=== PATIENT | male | born 1965 | race American Indian/Alaskan Native ===

== ENCOUNTER 2018-01-27 06:05 | Emergency (ER) | payer SELFPAY ==
[2018-01-27 06:26] VITALS: BP 120/70
[2018-01-27] MEDS ORDERED: ASPIRIN PO ONE (06:26)
--- NOTE | 2018-01-27 06:47 | XRay Report ---
FINAL REPORT PROCEDURE: XR CHEST ROUTINE 2V TECHNIQUE: Chest radiograph anteroposterior view. CPT 60408 HISTORY: chestpain COMPARISON: No prior studies are available for comparison. FINDINGS: Heart: Normal. Mediastinum/Vessels: Normal. Lungs/Pleural space: Normal. Bony thorax: No acute osseous abnormality. Life support devices: None. IMPRESSION: No acute cardiopulmonary abnormality.
[2018-01-27 06:56] LABS: Basophils # (Auto) 0.1 K/mm3 (0.0-0.1); Basophils % (Auto) 0.9 % (0.0-1.8); Eosinophils # (Auto) 0.3 K/mm3 (0.0-0.4); Eosinophils % (Auto) 4.5 % (0.0-4.3); Lymphocytes # (Auto) 2.6 K/mm3 (1.2-5.4); Mean Corpuscular HGB Conc 34 % (32-34); Mean Corpuscular Hemoglobin 31 pg (28-32); Mean Corpuscular Volume 92 fl (84-94); Monocytes # (Auto) 0.8 K/mm3 (0.0-0.8); Monocytes % (Auto) 11.7 % (0.0-7.3); Platelet Count 291 K/mm3 (140-440); Red Blood Count 4.45 M/mm3 (3.65-5.03); Red Cell Distribution Width 13.8 % (13.2-15.2)
[2018-01-27 07:19] LABS: BUN/Creatinine Ratio 9; Blood Urea Nitrogen 9 mg/dL (9-20); Calcium 9.3 mg/dL (8.4-10.2); Hemolysis Index 2
== END 2018-01-27 07:00 | disposition left against medical advice (07) ==
LOC: ED 06:05
DX: R07.89 Other chest pain (principal); Z53.21 Procedure and treatment not carried out due to patient leaving prior to being seen by health care provider
CPT/HCPCS: 36415; 71046; 80048; 84484; 85025; 93005; 93010

== ENCOUNTER 2019-07-16 22:40 | Emergency (ER) | payer SELFPAY ==
[2019-07-16 22:48] VITALS: BP 135/80
--- NOTE | 2019-07-17 02:48 | Emergency Department Report ---
ED General Adult HPI - General Chief complaint: Earache Stated complaint: LEFT EAR FB Time Seen by Provider: 07/17/19 01:20 Source: patient Mode of arrival: Ambulatory Limitations: No Limitations - History of Present Illness Initial comments: 54yo BM states that he has a piece of cotton from a Q-tip in his L ear that he can not remove x 1 day. -: days(s) (1 day) Location: head Radiation: non-radiation Severity scale (0 -10): 0 Improves with: none Worsens with: none Associated Symptoms: denies other symptoms Treatments Prior to Arrival: none - Related Data Previous Rx's Medication Instructions Recorded Last Taken Type Acetaminophen/Codeine 1 tab PO Q6H PRN #20 tab 08/03/14 Unknown Rx [Acetaminophen-Codeine #3 TAB] Ibuprofen [Motrin] 800 mg PO Q8H #30 tablet 08/03/14 Unknown Rx methOCARBAMOL [Robaxin] 500 mg PO TID #30 tablet 08/03/14 Unknown Rx Allergies Allergy/AdvReac Type Severity Reaction Status Date / Time No Known Allergies Allergy Unverified 07/30/13 00:16 ED Review of Systems ROS: Stated complaint: LEFT EAR FB Other details as noted in HPI Comment: All other systems reviewed and negative ENT: as per HPI ED Past Medical Hx - Past Medical History Previous Medical History?: Yes Hx Asthma: Yes Additional medical history: hx. pancreatitis - Surgical History Past Surgical History?: No - Social History Smoking Status: Current Every Day Smoker Substance Use Type: Alcohol, Marijuana - Medications Home Medications: Home Medications Medication Instructions Recorded Confirmed Last Taken Type Acetaminophen/Codeine 1 tab PO Q6H PRN #20 tab 08/03/14 Unknown Rx [Acetaminophen-Codeine #3 TAB] Ibuprofen [Motrin] 800 mg PO Q8H #30 tablet 08/03/14 Unknown Rx methOCARBAMOL [Robaxin] 500 mg PO TID #30 tablet 08/03/14 Unknown Rx ED Physical Exam - General Limitations: No Limitations General appearance: alert, in no apparent distress - Head Head exam: Present: atraumatic, normocephalic - Eye Eye exam: Present: normal appearance, PERRL, EOMI Pupils: Present: normal accommodation - Expanded ENT Exam Expanded TM/Canal exam: Foreign Body: Left TM (white distal cotton portion of Q-tip present in ear canal) Throat exam: Positive: normal inspection - Neck Neck exam: Present: normal inspection, tenderness, full ROM - Respiratory Respiratory exam: Present: normal lung sounds bilaterally. Absent: respiratory distress, wheezes - Cardiovascular Cardiovascular Exam: Present: regular rate, normal rhythm, normal heart sounds - GI/Abdominal GI/Abdominal exam: Present: soft. Absent: distended, tenderness - Rectal Rectal exam: Present: deferred - Extremities Exam Extremities exam: Present: normal inspection, full ROM. Absent: tenderness - Back Exam Back exam: Present: normal inspection, full ROM. Absent: tenderness - Neurological Exam Neurological exam: Present: alert, altered, oriented X3 - Psychiatric Psychiatric exam: Present: normal affect, normal mood. Absent: anxious - Skin Skin exam: Present: warm, dry, intact ED Course Vital Signs 07/16/19 22:46 Temperature 98 F Pulse Rate 79 Respiratory 16 Rate Blood Pressure 135/80 Blood Pressure 135/80 [Left] O2 Sat by Pulse 98 Oximetry - Procedure Description Procedures done: Foreign body visualized in the Left external ear canal. Alligator forceps were used to remove the foreign body successfully. Left external ear canal and TM were without injury and intact upon completion of the procedure. Pt tolerated the procedure well. ED Medical Decision Making - Medical Decision Making 54yo BM states that he has a piece of cotton from a Q-tip in his L ear that he can not remove x 1 day. Pt was informed that upon exam the foreign was visualized and will be removed. Foreign body visualized in the Left external ear canal. Alligator forceps were used to remove the foreign body successfully. Left external ear canal and TM were without injury and intact upon completion of the procedure. Pt tolerated the procedure well. Pt was instructed to see the ER as needed. Critical care attestation.: If time is entered above; I have spent that time in minutes in the direct care of this critically ill patient, excluding procedure time. ED Disposition Clinical Impression: Foreign body Disposition: DC-01 TO HOME OR SELFCARE Is pt being admited?: No Does the pt Need Aspirin: No Condition: Stable Additional Instructions: Pt departed before receiving referral. Referrals: [facility] [Provider Group] - 3-5 Days
== END 2019-07-17 02:50 | disposition home or self-care (01) ==
LOC: ED 22:40
DX: T16.2XXA Foreign body in left ear, initial encounter (principal); J45.909 Unspecified asthma, uncomplicated; F17.200 Nicotine dependence, unspecified, uncomplicated; F10.10 Alcohol abuse, uncomplicated; F12.10 Cannabis abuse, uncomplicated; Z79.899 Other long term (current) drug therapy; X58.XXXA Exposure to other specified factors, initial encounter; Y93.89 Activity, other specified; Y92.89 Other specified places as the place of occurrence of the external cause; Y99.8 Other external cause status

== ENCOUNTER 2019-10-29 14:28 | Emergency (ER) | payer SELFPAY ==
[2019-10-29 15:13] VITALS: BP 117/70
--- NOTE | 2019-10-29 15:15 | Emergency Department Report ---
ED Neck Pain/Injury HPI - General Chief Complaint: Neck Pain/Injury Stated Complaint: NECK PAIN Time Seen by Provider: 10/29/19 15:10 Mode of arrival: Ambulatory Limitations: No Limitations - History of Present Illness Initial Comments: This is a 54-year-old male nontoxic, well nourished in appearance, no acute signs of distress presents to the ED with c/o of acute on chronic upper back pain. Patient stated that the past 2 days he was heavy lifting and developed this pain. Patient denies any trauma. Denies any bladder or bowel instability. Patient denies any urinary symptoms. Denies any fever, chills, nausea, vomiting, headache, stiff neck, chest pain or shortness of breath. Patient denies any numbness or tingling. Denies any allergies. MD Complaint: upper back pain -: days(s) Radiation: upper back Severity: mild Severity scale (0 -10): 3 Quality: aching Consistency: intermittent Improves With: immobilization, remaining still Worsens With: movement of neck Associated Symptoms: none. denies: headache, fever, numbness, tingling, weakness, vertigo, difficulty walking, swollen glands, difficulty swallowing, nausea, vomiting Treatments Prior to Arrival: none - Related Data Previous Rx's Medication Instructions Recorded Last Taken Type Acetaminophen/Codeine 1 tab PO Q6H PRN #20 tab 08/03/14 Unknown Rx [Acetaminophen-Codeine #3 TAB] Ibuprofen [Motrin] 800 mg PO Q8H #30 tablet 08/03/14 Unknown Rx methOCARBAMOL [Robaxin] 500 mg PO TID #30 tablet 08/03/14 Unknown Rx Cyclobenzaprine [Flexeril] 10 mg PO QHS PRN #10 tablet 10/29/19 Unknown Rx Naproxen 500 mg PO Q12H PRN #20 tablet 10/29/19 Unknown Rx Allergies Allergy/AdvReac Type Severity Reaction Status Date / Time No Known Allergies Allergy Unverified 07/30/13 00:16 ED Review of Systems ROS: Stated complaint: NECK PAIN Other details as noted in HPI Constitutional: denies: chills, fever Eyes: denies: eye pain, eye discharge, vision change ENT: denies: ear pain, throat pain Respiratory: denies: cough, shortness of breath, wheezing Cardiovascular: denies: chest pain, palpitations Endocrine: no symptoms reported Gastrointestinal: denies: abdominal pain, nausea, diarrhea Genitourinary: denies: urgency, dysuria Musculoskeletal: back pain. denies: joint swelling, arthralgia Skin: denies: rash, lesions Neurological: denies: headache, weakness, paresthesias Psychiatric: denies: anxiety, depression Hematological/Lymphatic: denies: easy bleeding, easy bruising ED Past Medical Hx - Past Medical History Previous Medical History?: Yes Hx Asthma: Yes Additional medical history: hx. pancreatitis - Surgical History Past Surgical History?: No - Social History Smoking Status: Current Every Day Smoker Substance Use Type: Alcohol, Marijuana - Medications Home Medications: Home Medications Medication Instructions Recorded Confirmed Last Taken Type Acetaminophen/Codeine 1 tab PO Q6H PRN #20 tab 08/03/14 Unknown Rx [Acetaminophen-Codeine #3 TAB] Ibuprofen [Motrin] 800 mg PO Q8H #30 tablet 08/03/14 Unknown Rx methOCARBAMOL [Robaxin] 500 mg PO TID #30 tablet 08/03/14 Unknown Rx Cyclobenzaprine [Flexeril] 10 mg PO QHS PRN #10 tablet 10/29/19 Unknown Rx Naproxen 500 mg PO Q12H PRN #20 tablet 10/29/19 Unknown Rx ED Physical Exam - General Limitations: No Limitations General appearance: alert, in no apparent distress - Head Head exam: Present: atraumatic, normocephalic - Eye Eye exam: Present: normal appearance, PERRL, EOMI - Neck Neck exam: Present: normal inspection, full ROM. Absent: tenderness, meningismus, lymphadenopathy - Extremities Exam Extremities exam: Present: normal inspection, full ROM, normal capillary refill. Absent: tenderness - Back Exam Back exam: Present: normal inspection, full ROM, paraspinal tenderness (left cervical paraspinal). Absent: tenderness, CVA tenderness (R), CVA tenderness (L), muscle spasm, vertebral tenderness, rash noted - Neurological Exam Neurological exam: Present: alert, oriented X3, normal gait - Psychiatric Psychiatric exam: Present: normal affect, normal mood - Skin Skin exam: Present: warm, dry, intact, normal color. Absent: rash ED Course - Reevaluation(s) Reevaluation #1: 10/29/19 15:13 Patient is speaking in full sentences with no signs of distress noted. ED Medical Decision Making - Medical Decision Making This is a 54-year-old male that presents with upper back strain. Patient is stable was examined by me. There is no spinal tenderness. There is no cauda equina syndrome during examination. No bladder or bowel instability. Patient is discharged with muscle relaxant and NSAID. Patient was instructed not to operate any machinery while taking muscle relaxant as they cause her drowsiness. Patient was referred to Follow-up with a primary care doctor in 3-5 days or if symptoms worsen and continue return to emergency room as soon as possible. At time of discharge, the patient does not seem toxic or ill in appearance. No acute signs of distress noted. Patient agrees to discharge treatment plan of care. No further questions noted by the patient. Critical care attestation.: If time is entered above; I have spent that time in minutes in the direct care of this critically ill patient, excluding procedure time. ED Disposition Clinical Impression: Cervical muscle strain Qualifiers: Encounter type: initial encounter Qualified Code(s): S16.1XXA - Strain of muscle, fascia and tendon at neck level, initial encounter Disposition: TO HOME OR SELFCARE Is pt being admited?: No Does the pt Need Aspirin: No Condition: Stable Instructions: Muscle Strain (ED) Additional Instructions: Follow-up with a primary care doctor in 3-5 days or if symptoms worsen and continue return to emergency room as soon as possible. Prescriptions: Cyclobenzaprine [Flexeril] 10 mg PO QHS PRN #10 tablet PRN Reason: Muscle Spasm Naproxen 500 mg PO Q12H PRN #20 tablet PRN Reason: Pain , Severe (7-10) Referrals: CHING HESTER MD [Referring] - 3-5 Days ANGELINA CHRISTIAN MD [Staff Physician] - 3-5 Days [facility] [Outside] - 3-5 Days
== END 2019-10-29 15:40 | disposition home or self-care (01) ==
LOC: ED 14:28
DX: S16.1XXA Strain of muscle, fascia and tendon at neck level, initial encounter (principal); F12.90 Cannabis use, unspecified, uncomplicated; J45.909 Unspecified asthma, uncomplicated; F17.200 Nicotine dependence, unspecified, uncomplicated; Z79.899 Other long term (current) drug therapy; X58.XXXA Exposure to other specified factors, initial encounter; Y93.89 Activity, other specified; Y92.89 Other specified places as the place of occurrence of the external cause; Y99.8 Other external cause status
CPT/HCPCS: 99282

== ENCOUNTER 2020-05-10 18:01 | Emergency (ER) | payer SELFPAY ==
[2020-05-10] MEDS ORDERED: dexAMETHasone 4 MG/ML VIAL IM ONE (19:16)
[2020-05-10] MEDS ORDERED: KETOROLAC 60 MG/2 ML INJ IM ONE (19:16)
--- NOTE | 2020-05-10 19:24 | Emergency Department Report ---
ED General Adult HPI - General Chief complaint: Extremity Injury, Upper Stated complaint: numbness Time Seen by Provider: 05/10/20 18:50 Source: patient Mode of arrival: Ambulatory Limitations: No Limitations - History of Present Illness Initial comments: Patient is a 55-year-old male presents emergency room with complaints of right arm tingling and neck pain that began a week ago. He denies any fall or injury. 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 He states that he is also has left-sided sciatica which he reports that he has had for 3 to 4 months. He states he has it in his left lower back radiating down his left leg. He denies any complete numbness, weakness, bowel or bladder incontinence, gait disturbance, headache, vision changes, fever, vomiting, urinary symptoms, CP, SOB. He denies any other past medical history. No allergies to medications. He has not seen a primary care physician or an orthopedic. - Related Data Previous Rx's Medication Instructions Recorded Last Taken Type Acetaminophen/Codeine 1 tab PO Q6H PRN #20 tab 08/03/14 Unknown Rx [Acetaminophen-Codeine #3 TAB] Ibuprofen [Motrin] 800 mg PO Q8H #30 tablet 08/03/14 Unknown Rx methOCARBAMOL [Robaxin] 500 mg PO TID #30 tablet 08/03/14 Unknown Rx Cyclobenzaprine [Flexeril] 10 mg PO QHS PRN #10 tablet 10/29/19 Unknown Rx Naproxen 500 mg PO Q12H PRN #20 tablet 10/29/19 Unknown Rx Menthol/Camphor [[place] 1 applic TP BID #8 oint...g. 05/10/20 Unknown Rx Ointment] Naproxen 500 mg PO BID PRN #14 tablet 05/10/20 Unknown Rx methOCARBAMOL [Robaxin TAB] 500 mg PO BID PRN #14 tab 05/10/20 Unknown Rx Allergies Allergy/AdvReac Type Severity Reaction Status Date / Time No Known Allergies Allergy Unverified 07/30/13 00:16 ED Review of Systems ROS: Stated complaint: numbness Other details as noted in HPI Comment: All other systems reviewed and negative ED Past Medical Hx - Past Medical History Previous Medical History?: Yes Hx Asthma: Yes Additional medical history: hx. pancreatitis, Back and neck pain - Surgical History Past Surgical History?: No - Social History Smoking Status: Current Every Day Smoker Substance Use Type: Alcohol, Marijuana - Medications Home Medications: Home Medications Medication Instructions Recorded Confirmed Last Taken Type Acetaminophen/Codeine 1 tab PO Q6H PRN #20 tab 08/03/14 Unknown Rx [Acetaminophen-Codeine #3 TAB] Ibuprofen [Motrin] 800 mg PO Q8H #30 tablet 08/03/14 Unknown Rx methOCARBAMOL [Robaxin] 500 mg PO TID #30 tablet 08/03/14 Unknown Rx Cyclobenzaprine [Flexeril] 10 mg PO QHS PRN #10 tablet 10/29/19 Unknown Rx Naproxen 500 mg PO Q12H PRN #20 tablet 10/29/19 Unknown Rx Menthol/Camphor [[place] 1 applic TP BID #8 oint...g. 05/10/20 Unknown Rx Ointment] Naproxen 500 mg PO BID PRN #14 tablet 05/10/20 Unknown Rx methOCARBAMOL [Robaxin TAB] 500 mg PO BID PRN #14 tab 05/10/20 Unknown Rx ED Physical Exam - General Limitations: No Limitations General appearance: alert, in no apparent distress - Head Head exam: Present: atraumatic, normocephalic - Eye Eye exam: Present: normal appearance - ENT ENT exam: Present: mucous membranes moist - Neck Neck exam: Present: normal inspection, tenderness (right sided paraspinal muscular ttp, no midline ttp, no step offs, no deformities ), full ROM - Respiratory Respiratory exam: Present: normal lung sounds bilaterally. Absent: respiratory distress, wheezes, rales, rhonchi, stridor, chest wall tenderness, accessory muscle use, decreased breath sounds, prolonged expiratory - Cardiovascular Cardiovascular Exam: Present: regular rate, normal rhythm, normal heart sounds. Absent: systolic murmur, diastolic murmur, rubs, gallop - Back Exam Back exam: Present: normal inspection, full ROM, paraspinal tenderness (left sided L-spine paraspinal muscular ttp, no midline C-spine, T-spine or L-spine ttp, no step offs, no deformities). Absent: vertebral tenderness - Neurological Exam Neurological exam: Present: alert, oriented X3, CN II-XII intact, normal gait. Absent: motor sensory deficit - Psychiatric Psychiatric exam: Present: normal affect, normal mood - Skin Skin exam: Present: warm, dry, intact ED Course Vital Signs 05/10/20 18:06 Temperature 98.5 F Pulse Rate 73 Respiratory 20 Rate Blood Pressure 127/80 O2 Sat by Pulse 97 Oximetry ED Medical Decision Making - Medical Decision Making Patient is a 55-year-old male presents emergency room with complaints of right arm tingling and neck pain that began a week ago. He denies any fall or injury. 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 He states that he is also has left-sided sciatica which he reports that he has had for 3 to 4 months. He states he has it in his left lower back radiating down his left leg. He denies any complete numbness, weakness, bowel or bladder incontinence, gait disturbance, headache, vision changes, fever, vomiting, urinary symptoms, CP, SOB. He denies any other past medical history. No allergies to medications. He has not seen a primary care physician or an orthopedic. Vitals are normal. On exam: right sided paraspinal muscular ttp, no midline ttp, no step offs, no deformities, left sided L-spine paraspinal muscular ttp, no midline C-spine, T-spine or L-spine ttp, no step offs, no deformities, no focal neuro deficits. Symptoms and examination appear most consistent with cervical radiculopathy. He also has chronic sciatica. Patient given Toradol and dexamethasone IM and symptoms improved. Patient will be referred to orthopedic. Patient will be referred to a primary care physician. Patient given prescription for naproxen, Robaxin, [place] balm ointment. Advised patient to please use medication as prescribed. Do not drive, work, or operate heavy machinery while taking muscle relaxer Robaxin. May use ice pack, heating pad, rest, Epson salt bath. Please do the stretches for sciatica. Follow-up with an orthopedic doctor. Follow-up with a primary care doctor. Return to emergency room for any new or worsening symptoms. - Differential Diagnosis cervical radiculopathy, bulging disc, DDD, sciatica, arthritis,muscle strai Critical care attestation.: If time is entered above; I have spent that time in minutes in the direct care of this critically ill patient, excluding procedure time. ED Disposition Clinical Impression: Neck pain, Tingling of right upper extremity Sciatica Qualifiers: Laterality: left Qualified Code(s): M54.32 - Sciatica, left side Disposition: DC-01 TO HOME OR SELFCARE Is pt being admited?: No Does the pt Need Aspirin: No Condition: Stable Instructions: Cervical Radiculopathy (ED), Sciatica (ED) Additional Instructions: please use medication as prescribed. Do not drive, work, or operate heavy machinery while taking muscle relaxer Robaxin. May use ice pack, heating pad, rest, Epson salt bath. Please do the stretches for sciatica. Follow-up with an orthopedic doctor. Follow-up with a primary care doctor. Return to emergency room for any new or worsening symptoms. Prescriptions: Naproxen 500 mg PO BID PRN #14 tablet PRN Reason: pain methOCARBAMOL [Robaxin TAB] 500 mg PO BID PRN #14 tab PRN Reason: pain Menthol/Camphor [[place] Ointment] 1 applic TP BID #8 oint...g. Referrals: ANGELINA CHRISTIAN MD [Staff Physician] - 2-[address] [facility] [Provider Group] - 2-3 Days [facility] [Provider Group] - 2-3 Days Time of Disposition: 19:30 Print Language: THAI
[2020-05-10 19:39] VITALS: BP 124/80
== END 2020-05-10 19:37 | disposition home or self-care (01) ==
LOC: ED 18:01
DX: M54.32 Sciatica, left side (principal); M54.2 Cervicalgia; R20.2 Paresthesia of skin; J45.909 Unspecified asthma, uncomplicated; F17.200 Nicotine dependence, unspecified, uncomplicated; F12.90 Cannabis use, unspecified, uncomplicated; Z79.899 Other long term (current) drug therapy
CPT/HCPCS: 96372; 99282; J1100; J1885

== ENCOUNTER 2020-05-12 05:54 | Emergency (ER) | payer SELFPAY ==
--- NOTE | 2020-05-12 06:35 | XRay Report ---
CHEST 1 VIEW 05/12/2020 6:30 AM INDICATION / CLINICAL INFORMATION: Chest Pain. COMPARISON: Chest x-ray on 01/27/2018 FINDINGS: SUPPORT DEVICES: None. HEART / MEDIASTINUM: No significant abnormality. LUNGS / PLEURA: No significant pulmonary or pleural abnormality. No pneumothorax. ADDITIONAL FINDINGS: No significant additional findings. IMPRESSION: 1. No acute findings. Signer Name: Vlad Patrick MD Signed: 05/12/2020 6:30 AM Workstation Name: [id number]
[2020-05-12 07:04] LABS: Basophils # (Auto) 0.1 K/mm3 (0.0-0.1); Eosinophils # (Auto) 0.2 K/mm3 (0.0-0.4); Eosinophils % (Auto) 1.9 % (0.0-4.3); Hematocrit 42.4 % (35.5-45.6); Hemoglobin 14.9 gm/dl (11.8-15.2); Lymphocytes # (Auto) 3.5 K/mm3 (1.2-5.4); Lymphocytes % (Auto) 37.3 % (13.4-35.0); Mean Corpuscular HGB Conc 35 % (32-34); Mean Corpuscular Volume 91 fl (84-94); Monocytes # (Auto) 0.8 K/mm3 (0.0-0.8); Monocytes % (Auto) 8.9 % (0.0-7.3); Platelet Count 305 K/mm3 (140-440); Red Blood Count 4.65 M/mm3 (3.65-5.03); Red Cell Distribution Width 13.5 % (13.2-15.2)
[2020-05-12 07:26] LABS: BUN/Creatinine Ratio 10; Blood Urea Nitrogen 11 mg/dL (9-20); Calcium 9.4 mg/dL (8.4-10.2); Hemolysis Index 7
--- NOTE | 2020-05-12 07:26 | Emergency Department Report ---
ED Chest Pain HPI - General Chief Complaint: Chest Pain Stated Complaint: CHEST PAIN Time Seen by Provider: 05/12/20 07:14 Source: patient Mode of arrival: Ambulatory Limitations: No Limitations - History of Present Illness Initial Comments: 55-year-old male, no past medical history, presents to ED with complaint of chest pain. Patient states pain is left-sided, sharp in nature, nonradiating. Patient reports onset of pain at approximately 4:30 AM. He states pain has been constant. He reports associated diaphoresis and shortness of breath. He denies any nausea or vomiting, cough, fever, leg pain or swelling. He denies any aggravating or alleviating factors. Patient reports tobacco and marijuana use. Patient was seen 2 days ago for right-sided neck and arm pain and diagnosed with radiculopathy. MD Complaint: chest pain -: This morning Onset: during rest Pain Location: left chest Pain Radiation: none Severity: moderate Severity scale (0 -10): 8 Quality: sharp Consistency: constant Improves With: nothing Worsens With: nothing re: diaphoresis, dyspnea. denies: nausea, vomting Other Symptoms: denies: cough, fever, leg swelling - Related Data Previous Rx's Medication Instructions Recorded Last Taken Type Acetaminophen/Codeine 1 tab PO Q6H PRN #20 tab 08/03/14 Unknown Rx [Acetaminophen-Codeine #3 TAB] Ibuprofen [Motrin] 800 mg PO Q8H #30 tablet 08/03/14 Unknown Rx methOCARBAMOL [Robaxin] 500 mg PO TID #30 tablet 08/03/14 Unknown Rx Cyclobenzaprine [Flexeril] 10 mg PO QHS PRN #10 tablet 10/29/19 Unknown Rx Naproxen 500 mg PO Q12H PRN #20 tablet 10/29/19 Unknown Rx Menthol/Camphor [[place] 1 applic TP BID #8 oint...g. 05/10/20 Unknown Rx Ointment] Naproxen 500 mg PO BID PRN #14 tablet 05/10/20 Unknown Rx methOCARBAMOL [Robaxin TAB] 500 mg PO BID PRN #14 tab 05/10/20 Unknown Rx Allergies Allergy/AdvReac Type Severity Reaction Status Date / Time No Known Allergies Allergy Verified 05/12/20 06:01 Heart Score - HEART Score History: Slightly suspicious EKG: Normal Age: 45-65 Risk factors: 1-2 risk factors Troponin: < normal limit HEART Score: 2 ED Review of Systems ROS: Stated complaint: CHEST PAIN Other details as noted in HPI ED Past Medical Hx - Past Medical History Previous Medical History?: Yes Hx Asthma: Yes Additional medical history: hx. pancreatitis, Back and neck pain - Surgical History Past Surgical History?: No - Social History Smoking Status: Current Every Day Smoker Substance Use Type: Alcohol, Marijuana - Medications Home Medications: Home Medications Medication Instructions Recorded Confirmed Last Taken Type Acetaminophen/Codeine 1 tab PO Q6H PRN #20 tab 08/03/14 Unknown Rx [Acetaminophen-Codeine #3 TAB] Ibuprofen [Motrin] 800 mg PO Q8H #30 tablet 08/03/14 Unknown Rx methOCARBAMOL [Robaxin] 500 mg PO TID #30 tablet 08/03/14 Unknown Rx Cyclobenzaprine [Flexeril] 10 mg PO QHS PRN #10 tablet 10/29/19 Unknown Rx Naproxen 500 mg PO Q12H PRN #20 tablet 10/29/19 Unknown Rx Menthol/Camphor [[place] 1 applic TP BID #8 oint...g. 05/10/20 Unknown Rx Ointment] Naproxen 500 mg PO BID PRN #14 tablet 05/10/20 Unknown Rx methOCARBAMOL [Robaxin TAB] 500 mg PO BID PRN #14 tab 05/10/20 Unknown Rx ED Physical Exam - General Limitations: No Limitations General appearance: alert, in no apparent distress - Head Head exam: Present: atraumatic, normocephalic - Eye Eye exam: Present: normal appearance, EOMI - ENT ENT exam: Present: mucous membranes moist - Neck Neck exam: Present: normal inspection - Respiratory Respiratory exam: Present: normal lung sounds bilaterally, chest wall tenderness. Absent: respiratory distress - Cardiovascular Cardiovascular Exam: Present: regular rate, normal rhythm - GI/Abdominal GI/Abdominal exam: Present: soft. Absent: distended, tenderness - Extremities Exam Extremities exam: Present: normal inspection. Absent: pedal edema, calf tenderness - Neurological Exam Neurological exam: Present: alert, oriented X3 - Psychiatric Psychiatric exam: Present: normal affect, normal mood - Skin Skin exam: Present: warm, dry, intact, normal color ED Course Vital Signs 05/12/20 05/12/20 05/12/20 05:55 06:53 06:55 Temperature 97.6 F 97.8 F Pulse Rate 58 L 54 L Respiratory 18 20 Rate Blood Pressure Blood Pressure 150/82 137/88 [Right] O2 Sat by Pulse 100 97 99 Oximetry 05/12/20 05/12/20 05/12/20 07:00 07:24 07:30 Temperature Pulse Rate 58 L 56 L 57 L Respiratory 15 13 14 Rate Blood Pressure 146/84 124/80 Blood Pressure 121/77 [Right] O2 Sat by Pulse 95 97 96 Oximetry 05/12/20 05/12/20 05/12/20 08:00 08:30 08:46 Temperature Pulse Rate 51 L 56 L 59 L Respiratory 14 15 12 Rate Blood Pressure 127/81 109/73 118/88 Blood Pressure [Right] O2 Sat by Pulse 98 98 97 Oximetry 05/12/20 05/12/20 09:15 12:14 Temperature Pulse Rate 55 L 54 L Respiratory 17 16 Rate Blood Pressure Blood Pressure 128/83 132/65 [Right] O2 Sat by Pulse 97 99 Oximetry - Reevaluation(s) Reevaluation #1: 05/12/20 09:34 Spoke w/ electrical electronics technician. States scanner will be down for another hour. Unable to get 2nd scanner up and running. Will order V/Q scan. ED Medical Decision Making - Lab Data Result diagrams: 05/12/20 06:42 05/12/20 06:42 - EKG Data -: EKG Interpreted by Tx EKG shows normal: sinus rhythm, axis, intervals, QRS complexes, ST-T waves Rate: normal - EKG Data Interpretation: no acute changes, other (old anteroseptal infarct) - Radiology Data Radiology results: report reviewed, image reviewed - Medical Decision Making 55-year-old male presents to ED with left-sided chest pain. EKG shows no acute ST changes. Troponin is negative x2. D-dimer was elevated, so VQ scan was ob tained which shows low probability for PE. Patient is in no respiratory distress, O2 sats are normal. Patient has been asleep, resting comfortably on stretcher during his entire ED visit. Patient does have some reproducible chest wall tenderness, which may be the cause of his chest pain. At this point, patient does not require admission. Information faxed to [facility] for urgent cardiology follow-up. Patient is comfortable with this plan, will discharge at this time. - Differential Diagnosis ACS, PE, chest wall pain Critical care attestation.: If time is entered above; I have spent that time in minutes in the direct care of this critically ill patient, excluding procedure time. ED Disposition Clinical Impression: Acute chest pain Disposition: - TO HOME OR SELFCARE Is pt being admited?: No Condition: Stable Instructions: Chest Pain (ED) Referrals: HINA MERCEDES MD [Primary Care Provider] - 3-5 Days ARA CORONADO MD [Staff Physician] - 3-5 Days Time of Disposition: 11:00
[2020-05-12 08:04] LABS: INR 0.91 (0.87-1.13)
--- NOTE | 2020-05-12 10:50 | Nuclear Medicine Report ---
NM perfusion only lung scan INDICATION / CLINICAL INFORMATION: chest pain. TECHNIQUE: 5.5 mCi technetium MAA, IV COMPARISON: Compared to chest radiograph done earlier today. FINDINGS: Perfusion images demonstrate fairly homogeneous uptake throughout both lungs. I see no significant pe rfusion defects to indicate pulmonary embolus. IMPRESSION: 1. Probability of pulmonary embolus. Signer Name: Thomas Hicks MD Signed: 05/12/2020 10:45 AM Workstation Name: [id number]
[2020-05-12 12:15] VITALS: BP 132/65
== END 2020-05-12 12:15 | disposition home or self-care (01) ==
LOC: ED 05:54
DX: R07.89 Other chest pain (principal); J45.909 Unspecified asthma, uncomplicated; F12.90 Cannabis use, unspecified, uncomplicated; F17.200 Nicotine dependence, unspecified, uncomplicated; Z79.899 Other long term (current) drug therapy
CPT/HCPCS: 36415; 71045; 78580; 80048; 84484; 85025; 85379; 85610; 85730; 93005; 99284; A9540

== ENCOUNTER 2021-07-23 18:09 | Emergency (ER) | payer SELFPAY ==
[2021-07-23] MEDS ORDERED: KETOROLAC 60 MG/2 ML INJ IM ONE (18:55)
--- NOTE | 2021-07-23 19:00 | Emergency Department Report ---
ED Back Pain/Injury HPI - General Chief Complaint: Pain General Stated Complaint: BACK, SIDE, NECK PAIN Time Seen by Provider: 07/23/21 18:46 Source: patient Mode of arrival: Ambulatory Limitations: No Limitations - History of Present Illness Initial Comments: 56-year-old [id number] male presents to the hospital planing of left- sided neck and right lower back pain x1 week. 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 Patient complains of moderate to severe right-sided neck and right-sided back stiffness, aching, that is worse with movement and palpation. Patient denies fever, nausea, vomiting, hematuria, dysuria, or incontinence. Patient has chronic left leg paresthesias which is unchanged and does not involve the right. Patient does not have a PMD - Related Data Previous Rx's Medication Instructions Recorded Last Taken Type Acetaminophen/Codeine 1 tab PO Q6H PRN #20 tab 08/03/14 Unknown Rx [Acetaminophen-Codeine #3 TAB] Ibuprofen [Motrin] 800 mg PO Q8H #30 tablet 08/03/14 Unknown Rx Cyclobenzaprine [Flexeril] 10 mg PO QHS PRN #10 tablet 10/29/19 Unknown Rx Naproxen 500 mg PO BID PRN #14 tablet 05/10/20 Unknown Rx methOCARBAMOL [Robaxin TAB] 500 mg PO BID PRN #14 tab 05/10/20 Unknown Rx Menthol/Camphor [[place] 1 applic TP BID #8 oint...g. 07/23/21 Unknown Rx Ointment] Naproxen 500 mg PO Q12H PRN #20 tablet 07/23/21 Unknown Rx methOCARBAMOL [Robaxin TAB] 500 mg PO TID #20 tablet 07/23/21 Unknown Rx Allergies Allergy/AdvReac Type Severity Reaction Status Date / Time No Known Allergies Allergy Verified 05/12/20 06:01 ED Review of Systems ROS: Stated complaint: BACK, SIDE, NECK PAIN Other details as noted in HPI Comment: All other systems reviewed and negative ED Past Medical Hx - Past Medical History Hx Asthma: Yes Additional medical history: hx. pancreatitis, Back and neck pain - Social History Smoking Status: Current Every Day Smoker Substance Use Type: Alcohol, Marijuana - Medications Home Medications: Home Medications Medication Instructions Recorded Confirmed Last Taken Type Acetaminophen/Codeine 1 tab PO Q6H PRN #20 tab 08/03/14 Unknown Rx [Acetaminophen-Codeine #3 TAB] Ibuprofen [Motrin] 800 mg PO Q8H #30 tablet 08/03/14 Unknown Rx Cyclobenzaprine [Flexeril] 10 mg PO QHS PRN #10 tablet 10/29/19 Unknown Rx Naproxen 500 mg PO BID PRN #14 tablet 05/10/20 Unknown Rx methOCARBAMOL [Robaxin TAB] 500 mg PO BID PRN #14 tab 05/10/20 Unknown Rx Menthol/Camphor [[place] 1 applic TP BID #8 oint...g. 07/23/21 Unknown Rx Ointment] Naproxen 500 mg PO Q12H PRN #20 tablet 07/23/21 Unknown Rx methOCARBAMOL [Robaxin TAB] 500 mg PO TID #20 tablet 07/23/21 Unknown Rx ED Physical Exam - General Limitations: No Limitations - Other Other exam information: General: No acute distress Head: Atraumatic Eyes: normal appearance ENT: Moist mucous membranes Neck: Normal appearance, no midline tenderness, right sided sternocleidomastoid tenderness extending to right sided trapezius Chest: Clear to auscultation bilaterally CV: Regular rate and rhythm Abdomen: Soft, normal bowel sounds, nontender, nondistended, no rebound or guarding Back: Normal inspection, no midline tenderness, right-sided paraspinal muscle tenderness Extremity: Normal inspection, full range of motion Neuro: Alert O x 3, no facial asymmetry, speech clear, no gross motor sensory deficit Psych: Appropriate behavior Skin: No rash ED Course Vital Signs 07/23/21 18:15 Temperature 98.7 F Pulse Rate 68 Respiratory 18 Rate Blood Pressure 121/69 O2 Sat by Pulse 98 Oximetry ED Medical Decision Making - Medical Decision Making 56-year-old male presents to the hospital with nontraumatic neck and lumbar pain. History and physical exam suggestive of musculoskeletal strain with spasm. Inciting factor is likely lifting heavy appliances with his job. Patient provided Toradol in the ED since he is driving home and could not receive anything stronger prior to driving. He was advised to rest but states he will likely go right back to work. Work excuse provided. Follow-up encouraged Critical Care Time: No Critical care attestation.: If time is entered above; I have spent that time in minutes in the direct care of this critically ill patient, excluding procedure time. ED Disposition Clinical Impression: Neck muscle strain, Strain of lumbar region Disposition: HOME / SELF CARE / HOMELESS Is pt being admited?: No Does the pt Need Aspirin: No Condition: Stable Instructions: Lumbar Sprain, Cervical Sprain, Back Injury Prevention, [id number] Additional Instructions: Take the medication as prescribed. Follow-up with your doctor or doctor/clinic provided. Return if symptoms worsen as indicated by your discharge instructions. Prescriptions: Naproxen 500 mg PO Q12H PRN #20 tablet PRN Reason: Pain , Severe (7-10) methOCARBAMOL [Robaxin TAB] 500 mg PO TID #20 tablet Menthol/Camphor [[place] Ointment] 1 applic TP BID #8 oint...g. Referrals: PRIMARY MD KACIE [Primary Care Provider] - 3-5 Days [facility] [Provider Group] - 3-5 Days ANGELINA CHRISTIAN MD [Staff Physician] - 3-5 Days Forms: Work/School Release Form(ED) Time of Disposition: 19:00
[2021-07-23 19:09] VITALS: BP 129/87
== END 2021-07-23 19:08 | disposition home or self-care (01) ==
LOC: ED 18:09
DX: S16.1XXA Strain of muscle, fascia and tendon at neck level, initial encounter (principal); S39.012A Strain of muscle, fascia and tendon of lower back, initial encounter; J45.909 Unspecified asthma, uncomplicated; F17.200 Nicotine dependence, unspecified, uncomplicated; F12.90 Cannabis use, unspecified, uncomplicated; Z72.89 Other problems related to lifestyle; Z79.899 Other long term (current) drug therapy; X58.XXXA Exposure to other specified factors, initial encounter; Y93.89 Activity, other specified; Y92.89 Other specified places as the place of occurrence of the external cause; Y99.8 Other external cause status
CPT/HCPCS: 96372; 99282; J1885

== ENCOUNTER 2021-12-07 12:54 | Emergency (ER) | payer SELFPAY | END 2021-12-07 14:20 | disposition left against medical advice (07) | LOC: ED 12:54 | DX: G89.29 Other chronic pain (principal); Z53.21 Procedure and treatment not carried out due to patient leaving prior to being seen by health care provider ==